=== PATIENT | female | born 1980 | race Two or more races ===

== ENCOUNTER 2016-10-23 00:20 | Emergency (ER) | payer OTHER ==
--- NOTE | 2016-10-23 06:50 | OBHP ---
Datetime: 10/23/2016 03:02 IP Adm Impression: , intrauterine ; No Active Labor IP Admit Plan: Observation/Evaluation Admit Comment, IP Provider: 36 YO F @ 34 weeks presents to the [facility] after having multiple episo kj of diarrhea and being referred by her OBGYN Dr. Borjas. - The patient states the episodes of diarrhea started around 10pm after she took her Zoloft and at e pizza, brussle sprouts and Ice Cream. She states that the episodes of diarrhea were intense and she was feeling weak and dizzy at that time when she spoke to Dr. Borjas and was referred here. Giorgio vasquez is unaware if the stool contained blood in it. She states she had also started her IV iron therapy yesterday, which she has tolerated fine in her previous 's with no issues. - Denies: LOF, VB, CTX. Has positive movements. 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 Previ ous preg: Aortic Stenosis @ [facility], 2 , 1 D_C PMH: Anxiety, TAMIKO in ( Decreased feritin as per patient.) PSH: none Allergy: none Med: PNV, Vit D and Calcium, IV iron therapy, Zoloft 50 Review of systems patient denies headache chest pain palpitations patient does report nausea vomit ing diarrhea patient denies fever chills. Intolerance easy bruisability musculoskeletal or neurologic al complaints A_P 36 YO F @ 34 weeks who presented to the [facility] after having diarrhea - Continuous monitoring - IV Fluids - Zofran - SMA8, CBC, Amylase, Lipase, Stool culture for ova and parasite - Nurse spoke with Dr. Borjas and he is aware of the findings. Radha Bradshaw The patient was seen with the resident and I agree with note IV fluid hydration and Zofran observa tion external monitor Abdomen - PN: Normal Lungs - PN: Normal Heart - PN: Normal Neurologic - PN: Normal HEENT - PN: Normal General - PN: Normal FHR - Baseline A Provider: 135 Comments, ACOG Physical Exam: Mucous membranes: Moist Vital Signs Provider: Reviewed; Within Normal Limits IP Chief Complaint: Other NICHD Variability Prov Fetus A: Moderate 6-25bpm NICHD Accel Fetus A IP Provider: [id number] FHR Category Provider Fetus A: Category I NICHD Decel Fetus A IP Provider: None
[2016-10-24 13:01] LABS: ALKALINE PHOSPHATASE 91 U/L (38-126); ALT/SGPT 30 U/L (9-52); AMYLASE 98 U/L (30-110); AST/SGOT 43 U/L (14-36); BILIRUBIN,TOTAL 0.2 mg/dl (0.2-1.3); BLOOD UREA NITROGEN 9 mg/dl (7-17); CALCIUM 8.8 mg/dL (8.4-10.2); CARBON DIOXIDE 21 mmol/L (22-30); CHLORIDE 105 mmol/L (98-107); GFR AFRICAN-AMERICAN > 60; GLUCOSE,RANDOM 94 mg/dL (65-105); LIPASE 158 U/L (23-300); POTASSIUM 3.6 MMOL/L (3.6-5.0); SODIUM 134 mmol/l (132-148); TOTAL PROTEIN 6.8 G/DL (6.3-8.2)
[2016-10-24 13:02] LABS: ALB/GLOB RATIO 1.1 (1.0-2.1)
--- NOTE | 2016-10-24 14:34 | US ---
PROCEDURE: Limited biophysical profile HISTORY: with fever and diarrhea COMPARISON: Not available TECHNIQUE: Limited obstetrical ultrasound examination for biophysical profile. FINDINGS: Examination demonstrates a single live intrauterine gestation in cephalic presentation. heart rate 132 beats per minute. Normal anterior placenta identified. Limited biophysical profile examination yields a score of 8 out of 8. IMPRESSION: Biophysical profile score 8 out of 8.
[2016-10-24 14:48] LABS: BASO % 0.5 % (0.0-2.0); EOS # 0.1 K/uL (0.0-0.7); EOS % 0.7 % (0.0-4.0); LYMPH # 2.6 K/uL (1.0-4.3); LYMPH % 27.5 % (20.0-40.0); MEAN CELL VOLUME 84.7 fl (81.0-99.0); MEAN CORPUSCULAR HEMOGLOBIN 27.8 pg (27.0-31.0); MEAN CORPUSCULAR HGB CONC 32.8 g/dL (33.0-37.0); MEAN PLATELET VOLUME 7.8 fl (7.2-11.7); MONO # 0.9 K/uL (0.0-0.8); MONO % 9.4 % (0.0-10.0); NEUT # 5.9 K/uL (1.8-7.0); NEUT % 61.9 % (50.0-75.0); NRBC % 0.1 % (0.0-0.0); RED CELL DISTRIBUTION WIDTH 13.9 % (11.5-14.5); WHITE BLOOD COUNT 9.5 K/uL (4.8-10.8)
== END 2016-10-23 12:00 | disposition home or self-care (01) ==
LOC: H.EROB2 00:20
DX: O26.93 Pregnancy related conditions, unspecified, third trimester (principal); R19.7 Diarrhea, unspecified; Z3A.34 34 weeks gestation of pregnancy